=== PATIENT | female | born 1960 | race Caucasian/White ===

== ENCOUNTER 2023-02-15 10:47 | Outpatient (CLI) | payer OTHER, SELFPAY ==
--- NOTE | 2023-02-15 11:00 | CRLHL7_ITS ---
For Patients: As a result of the Century Cures Act, medical imaging exams and procedure reports are released immediately into your electronic medical record. You may view this report before your referring provider. If you have questions, please contact your health care provider. Indication: SINUSITIS. HEARING LOSS IN RIGHT EAR Technique: Performed without IV contrast Comparison: None available Findings: Frontal sinuses: Mucosal thickening within the left frontal sinus. Both frontal sinuses are diminutive. Ethmoid sinuses: Moderate opacification of the left ethmoid sinus particularly involving the middle air cells. Right ethmoid sinus clear. Maxillary sinuses: Complete opacification of the left maxillary sinus. Clear right maxillary sinus. The left sinus drainage pathway is obstructed. Sphenoid sinuses: Clear, including both sphenoethmoidal recesses. Nasal Cavity: Paradoxical turn of the middle turbinates bilaterally. Nasal septum is primarily midline. No TMJ abnormalities identified. The visualized portions of the orbits, intracranial contents and upper soft tissue neck are grossly negative. Impression: Complete opacification of the left frontal sinus with some evidence of bony expansion suggesting possible mucocele. Soft tissue density extends into the sinus drainage pathway with resultant obstruction along with moderate opacification of the adjacent left ethmoid sinus. The right temporal bone appears normal. Please note that all CT scans at this facility use dose modulation, iterative reconstruction, and/or weight-based dosing when appropriate to reduce radiation dose to as low as reasonably achievable. Dictated by Dario Hernandez MD @ 02/15/2023 1:05:05 PM (Electronically Signed)
== END 2023-02-15 10:48 | disposition home or self-care (01) ==
LOC: CT 10:50
PROVIDERS: Visit Provider Otolaryngology
DX: J32.9 Chronic sinusitis, unspecified (principal)
CPT/HCPCS: 70486